=== PATIENT | female | born 1940 | race Caucasian/White ===

== ENCOUNTER → 2024-10-18 | Outpatient (CLI) | payer OTHER, MEDICAID, SELFPAY ==
[2024-10-18 09:09] LABS: Collection Type, Urine Clean Catch
[2024-10-18 09:32] LABS: Basophils # (Auto) 0.1 Thou/mm3 (0.0-0.2); Basophils % (Auto) 1 % (0-2.5); Eosinophils # (Auto) 0.2 Thou/mm3 (0.0-0.5); Eosinophils % (Auto) 3 % (0-10); Hematocrit 34.2 % (36.0-46.0); Hemoglobin 11.1 g/dL (12.0-16.0); Immature Granulocytes % (Auto) 0 % (0-0); Immature Granulocytes Auto 0.02 Thou/mm3 (0.00-0.00); Lymphocytes # (Auto) 2.2 Thou/mm3 (1.0-4.8); Lymphocytes % (Auto) 33 % (10-50); Mean Corpuscular HGB Conc 32.5 g/dl (31.0-37.0); Mean Corpuscular Hemoglobin 32.9 pg (25.0-35.0); Mean Corpuscular Volume 102 fL (80-100); Monocytes # (Auto) 0.7 Thou/mm3 (0.0-0.8); Monocytes % (Auto) 10 % (0-12); Neutrophils # (Auto) 3.7 Thou/mm3 (1.8-7.7); Neutrophils % (Auto) 54 % (37-80); Nucleated Red Blood Cell % 0 /100 WBC (0); Platelet Count 273 Thou/mm3 (140-440); RDW Standard Deviation 51.4 fL (36.4-46.3); Red Blood Count 3.37 Miln/mm3 (4.00-5.20); White Blood Count 6.8 Thou/mm3 (3.6-11.0)
[2024-10-18 09:46] LABS: Alanine Aminotransferase 16 U/L (10-49); Alkaline Phosphatase 76 U/L (46-116); Anion Gap 7 (7-16); Aspartate Amino Transferase 21 U/L (0-34); BUN/Creatinine Ratio 17 Ratio (12-20); Bilirubin,Total 0.3 mg/dL (0.3-1.2); Blood Urea Nitrogen 19 mg/dL (9-23); Calcium 9.3 mg/dL (8.3-10.6); Calcium (Corrected) 9.3 mg/dL (8.5-10.1); Carbon Dioxide 28.5 mMol/L (20.0-31.0); Chloride 105 mMol/L (98-107); Creatinine (Component) 1.1 mg/dL (0.6-1.3); Free T4 (Free Thyroxine) 0.98 ng/dL (0.89-1.76); Glucose 102 mg/dL (74-106); Osmolality,Calculated 281 (275-295); Potassium 4.9 mMol/L (3.4-5.1); Sodium 140 mMol/L (136-145); eGFR 50 See Note
[2024-10-18 10:24] LABS: Bilirubin,Urine Negative (Negative); Blood,Urine Negative (Negative); Clarity,Urine Clear (Clear/Hazy); Color,Urine Lt Yellow (Lt Yel-Yel); Glucose, Urine Negative (Negative); Ketones,Urine Negative (Negative); Leukocyte Esterase,Urine 1+ (Negative); Nitrite,Urine Negative (Negative); Protein,Urine Negative (Neg - Trace)
[2024-10-18 10:38] LABS: Bacteria,Urine Rare; RBC,Urine 3 /hpf (0-3); Squamous Epithelial Cell,Urine 23 /hpf (0-5); WBC,Urine 7 /hpf (0-5)
== END | disposition home or self-care (01) ==
PROVIDERS: PCP Family Medicine; Referring Provider Family Medicine; Visit Provider Family Medicine
DX: E03.9 Hypothyroidism, unspecified (principal); I10 Essential (primary) hypertension; E78.2 Mixed hyperlipidemia
CPT/HCPCS: 36415; 80053; 81001; 84439; 84443; 85025

== ENCOUNTER → 2024-12-15 | Outpatient (CLI) | payer OTHER, MEDICAID, SELFPAY ==
[2024-12-15 12:04] LABS: Basophils # (Auto) 0.1 Thou/mm3 (0.0-0.2); Basophils % (Auto) 1 % (0-2.5); Eosinophils # (Auto) 0.3 Thou/mm3 (0.0-0.5); Eosinophils % (Auto) 4 % (0-10); Hemoglobin 11.7 g/dL (12.0-16.0); Immature Granulocytes % (Auto) 1 % (0-0); Immature Granulocytes Auto 0.04 Thou/mm3 (0.00-0.00); Lymphocytes % (Auto) 38 % (10-50); Mean Corpuscular HGB Conc 32.5 g/dl (31.0-37.0); Mean Corpuscular Hemoglobin 31.9 pg (25.0-35.0); Mean Corpuscular Volume 98 fL (80-100); Monocytes # (Auto) 0.6 Thou/mm3 (0.0-0.8); Monocytes % (Auto) 8 % (0-12); Neutrophils # (Auto) 3.9 Thou/mm3 (1.8-7.7); Neutrophils % (Auto) 49 % (37-80); Nucleated Red Blood Cell % 0 /100 WBC (0); Platelet Count 274 Thou/mm3 (140-440); RDW Standard Deviation 48.2 fL (36.4-46.3); Red Blood Count 3.67 Miln/mm3 (4.00-5.20); White Blood Count 7.9 Thou/mm3 (3.6-11.0)
[2024-12-15 12:28] LABS: Iron 79 mcg/dL (50-170)
[2024-12-15 12:32] LABS: Cardiac Risk Estimate 3.3 RATIO (3.7-5.6); Cholesterol 185 mg/dL (132-200); Free T4 (Free Thyroxine) 1.18 ng/dL (0.89-1.76); HDL Cholesterol 56 mg/dL (40-60); LDL Cholesterol,Calculated 73 mg/dL (0-130); Triglycerides 278 mg/dL (30-150)
[2024-12-15 13:28] LABS: Vitamin B12 > 2000 pg/mL (211-911)
== END | disposition home or self-care (01) ==
LOC: COPL 11:30
PROVIDERS: PCP Family Medicine; Referring Provider Family Medicine; Visit Provider Family Medicine
DX: D51.9 Vitamin B12 deficiency anemia, unspecified (principal); E03.9 Hypothyroidism, unspecified
CPT/HCPCS: 36415; 80061; 82607; 83540; 84439; 84443; 85025

== ENCOUNTER → 2025-04-26 | Outpatient (CLI) | payer OTHER, MEDICAID, SELFPAY ==
[2025-04-26 10:46] LABS: Cardiac Risk Estimate 2.7 RATIO (3.7-5.6); Cholesterol 158 mg/dL (132-200); HDL Cholesterol 59 mg/dL (40-60); LDL Cholesterol,Calculated 53 mg/dL (0-130); Triglycerides 229 mg/dL (30-150)
== END | disposition home or self-care (01) ==
LOC: COPL 09:20
PROVIDERS: PCP Family Medicine; Referring Provider Family Medicine; Visit Provider Family Medicine
DX: E78.2 Mixed hyperlipidemia (principal)
CPT/HCPCS: 36415; 80061

== ENCOUNTER 2025-05-03 11:56 | Emergency (ER) | payer OTHER, MEDICAID, SELFPAY ==
[2025-05-03 12:09] VITALS: BP 192/85; PULSE 56; RESP 16; TEMP 36.7; O2SAT 100
--- NOTE | 2025-05-03 12:12 | XR_ITS ---
Examination: Hand, right 3 views Technique: Hand AP, oblique, lateral 3 views Date and time of exam: May 03, 2025 1220 hours INDICATIONS: Patient fell 2 days ago with injury to the hand and wrist, hand pain wrist pain. FINDINGS: Severe osteopenia Advanced osteoarthritis first carpometacarpal joint and distal interphalangeal joints as well as interphalangeal joint first digit Acute fracture distal radial metaphysis without significant displacement IMPRESSION: Acute fracture distal radial metaphysis without significant displacement
--- NOTE | 2025-05-03 12:12 | XR_ITS ---
Examination: Wrist, right 3 views Technique: Wrist AP, oblique, lateral 3 views Date and time of exam: May 03, 2025 1220 hours INDICATIONS: Patient fell 2 days ago with injury to the wrist, wrist pain. FINDINGS: Severe osteopenia Acute fracture distal radial metaphysis without significant displacement IMPRESSION: Acute fracture distal radial metaphysis without significant displacement
--- NOTE | 2025-05-03 12:15 | PD.EDUPEX ---
Upper Extremity Injury RME/HPI General Chief Complaint: Extremity Injury, Upper Stated Complaint: FELL INJURING R) WRIST Time Seen by Provider: 05/03/25 12:08 Source: patient Arrival date/time: 05/03/25 11:56 84-year-old female with a history of hypothyroidism, hypertension, presents to the emergency room with a chief complaint of tenderness and swelling to her right wrist after a ground-level fall that occurred yesterday morning. Patient denies any head trauma. Mode of arrival: ambulatory Limitations: no limitations Related Data Home Medications ?Medication ?Instructions ?Recorded ?Confirmed brimonidine 0.15 % eye drops 0.15 drp Both eyes TID #10 mL 05/16/17 06/03/24 (Alphagan P) naproxen sodium 220 mg tablet 220 mg PO BIDWM #0 tabs 05/16/17 06/03/24 (Aleve) travoprost 0.004 % eye drops 1 drp Both eyes HS #5 mL 05/16/17 06/03/24 (Travatan Z) timolol maleate 0.5 % eye drops 1 drp OP BID ##10 07/11/17 06/03/24 aspirin 81 mg tablet,delayed 81 mg PO QDAY 06/03/24 06/03/24 release celecoxib 200 mg capsule 200 mg PO QDAY 06/03/24 06/03/24 coenzyme Q10 100 mg capsule 100 mg PO QDAY 06/03/24 06/03/24 (CoQ-10) levothyroxine 75 mcg tablet 75 mcg PO QDAY 06/03/24 06/03/24 losartan 100 mg tablet 100 mg PO QDAY 06/03/24 06/03/24 multivitamin-ferrous 1 tab PO QAM 06/03/24 06/03/24 fumarate-folic acid 18 mg-400 mcg tablet (Centrum Women) nitroglycerin 0.4 mg sublingual 0.4 mg buccal [id number] PRN Chest 06/03/24 06/03/24 tablet Pain pantoprazole 40 mg tablet,delayed 40 mg PO QDAY 06/03/24 06/03/24 release (Protonix) ranolazine 500 mg tablet,extended 500 mg PO BID 06/03/24 06/03/24 release,12 hr rosuvastatin 10 mg tablet 10 mg PO QDAY 06/03/24 06/03/24 vitamin B12 2,500 mcg-folic acid 1 tab PO DAILY 06/03/24 06/03/24 400 mcg disintegrating tablet Allergies Allergy/AdvReac Type Severity Reaction Status Date / Time adhesive tape Allergy Mild TEARS SKIN Verified 05/03/25 12:01 ibuprofen Allergy Mild DIFFICULTY Verified 05/03/25 12:01 BREATHING, TURNS RED peanut oil Allergy Mild ITCHY FROM Verified 05/03/25 12:01 HEAD TO TOE Penicillins Allergy Mild Rash Verified 05/03/25 12:01 povidone-iodine Allergy Mild BLISTERS Verified 05/03/25 12:01 peanut Allergy Verified 05/03/25 12:01 Review of Systems Review of Systems Systems Reviewed: All systems reviewed, normal except as documented Constitutional Constitutional: Reports system reviewed and no additional complaints, except as documented, Denies fatigue, Denies fever(s), Denies headache(s) and Denies weakness Eyes Eyes: Reports system reviewed and no additional complaints, except as documented, Denies blurry vision and Denies change in vision ENT Ears, Nose, Mouth, and Throat: Reports system reviewed and no additional complaints, except as documented, Denies otalgia, Denies headache(s), Denies nasal congestion, Denies throat swelling and Denies vertigo Cardiovascular Cardiovascular: Reports system reviewed and no additional complaints, except as documented, Denies chest pain, Denies dyspnea and Denies dyspnea on exertion Respiratory Respiratory: Reports system reviewed and no additional complaints, except as documented, Denies chest congestion, Denies cough, Denies dyspnea, Denies dyspnea on exertion and Denies wheezing Gastrointestinal Gastrointestinal: Reports system reviewed and no additional complaints, except as documented, Denies abdominal pain, Denies cramping, Denies nausea and Denies vomiting Genitourinary Genitourinary: Reports system reviewed and no additional complaints, except as documented Musculoskeletal Musculoskeletal: Reports system reviewed and no additional complaints, except as documented, Reports arthralgias, Denies back pain, Reports joint swelling and Reports limited range of motion Integumentary/Breasts Skin/Breast: Reports system reviewed and no additional complaints, except as documented and Denies wounds Neurologic Neurologic: Reports system reviewed and no additional complaints, except as documented, Denies confusion, Denies headache(s), Denies lack of coordination, Denies vertigo and Denies weakness Psychiatric Psychiatric: Reports system reviewed and no additional complaints, except as documented, Denies anxiety, Denies confusion, Denies depression, Denies paranoia, Denies suicidal ideation and Denies tactile hallucinations Endocrine Endocrine: Reports system reviewed and no additional complaints, except as documented and Denies fatigue Hematologic/Lymphatic Hematologic/Lymphatic: Reports system reviewed and no additional complaints, except as documented and Denies lymphadenopathy Allergic/Immunologic Allergic/Immunologic: Reports system reviewed and no additional complaints, except as documented, Denies throat swelling, Denies urticaria and Denies wheezing Past Medical History Past Medical History NEUROLOGIC: Positive Neurological Disorders and Head Trauma (concussion); Negative Seizures CARDIAC: Positive Cardiac Disorders, Hypercholesterolemia, Valvular Heart Disease (mitral regurgitation) and Hypertension; Negative Congestive Heart Failure RESPIRATORY: Negative Chronic Obstructive Pulmonary Disease (COPD) or Asthma GASTROINTESTINAL: Positive Gastrointestinal Disorders, Gall Bladder Disease (removed 20 years ago), Gastroesophageal Reflux Disease and Obesity GENITOURINARY: Positive Genitourinary Disorders and Kidney Stones; Negative Renal Disease REPRODUCTIVE: Positive Previous Pregnancies MUSCULOSKELETAL: Positive Musculoskeletal Disorders, Arthritis, Scoliosis and Carpal Tunnel Syndrome (bilateral); Negative Osteoporosis ENT: Positive Cataracts (Bilateral), Glaucoma, Blind (left eye partial blindness), Macular Degeneration (cr), Deafness (partial hearing loss, has hearing aids) and Head Trauma (concussion) ENDOCRINE: Positive Endocrine Disorders and Hypothyroidism; Negative Diabetes Mellitus Type 1 or Diabetes Mellitus Type 2 HEMATOLOGIC: Negative Blood Disorders OTHER HISTORY: Positive Hospitalization (surgery) and Chicken Pox; Negative Autoimmune Disease, Shingles, Blood Transfusions, Blood Transfusion Reaction, Anesthesia Reactions or Cancer Family History FAMILY HISTORY: Positive Family Cardiac Disorders and Family Gastrointestinal Problems (obesity); Negative Family Psychiatric Problems, Family Respiratory Disorders, Family Cancer, Family Surgery or Family Anesthesia Reaction Surgical History SURGICAL: Positive Cardiac Surgery, Cardiac Catheterization, Angiogram (coronary), Tonsillectomy, Adenoidectomy, Abdominal Surgery, Gastric Bypass Surgery (2009) and Hysterectomy; Negative Coronary Stent, Lumpectomy or Tubal Ligation Social History SMOKING STATUS: Former smoker ED Exam General Limitations: Present no limitations General appearance: Present alert and in no apparent distress Head Head exam: Present atraumatic Eye Eye exam: Present normal appearance, PERRL and EOMI ENT ENT exam: Present normal exam, normal oropharynx and mucous membranes moist Neck Neck exam: Present normal inspection, full ROM and trachea midline Chest Chest inspection: Present normal inspection and symmetric chest wall rise Respiratory Respiratory exam: Present normal lung sounds bilaterally Cardiovascular Cardiovascular exam: Present regular rate, normal rhythm and normal heart sounds Abdominal Exam Abdominal exam: Present soft and normal bowel sounds Extremities Exam Extremities exam: Present normal inspection and full ROM Expanded Upper Extremity Exam Shoulder exam: Present normal inspection Arm exam: Present normal inspection Elbow exam: Present normal inspection Forearm/Wrist exam: Present tenderness and swelling; Absent full ROM Hand exam: Present tenderness and swelling; Absent full ROM Back Exam Back exam: Present normal inspection and full ROM Neurological Exam Neurological exam: Present alert, oriented X3 and CN II-XII intact Psychiatric Psychiatric exam: Present normal affect and normal mood Skin Skin exam: Present warm, dry, intact and normal color Course Quality Measures none Orders Category Date Time Status Splint / Immobilizer STAT Care 05/03/25 13:14 Active XR hand comp RT min 3V Stat Exams 05/03/25 12:12 Completed XR wrist comp RT min 3V Stat Exams 05/03/25 12:12 Completed Vital Signs Vital signs: Vital Signs Temperature 98.0 F 05/03/25 12:09 Pulse Rate 56 L 05/03/25 12:09 Respiratory Rate 16 05/03/25 12:09 Blood Pressure 192/85 H 05/03/25 12:09 Pulse Oximetry (%) 100 05/03/25 12:09 Oxygen Delivery Method Room Air 05/03/25 12:09 Extremity Injury MDM Narrative MDM Narrative:: 84-year-old female with a history of hypothyroidism, hypertension, presents to the emergency room with a chief complaint of tenderness and swelling to her right wrist after a ground-level fall that occurred yesterday morning. Patient denies any head trauma. Patient is hemodynamically stable and in no apparent distress Physical examination shows tenderness and pain to the patient's right wrist. The patient has a very limited range of motion. X-ray of the wrist was completed and shows an acute fracture of the distal radial metaphysis without significant displacement A splint was placed on the injury. The patient was discharged and educated to follow-up with a primary care provider as a referral to an transitional living specialist needed for further management patient was discharged and educated to follow-up with primary care provider in the next 24 to 48 hours and return to the emergency room for any evidence of worsening signs or symptoms Patient data External records reviewed:: [facility] previous records Clinical information provided by:: patient Social determinants that could affect healthcare access:: none Patient has the following chronic illnesses:: No chronic illness How is presenting disease/condition affected by chronic disease/condition?: no chronic disease Evaluation data The following diagnostics were reviewed and interpreted by me:: lab results and radiology exam(s) Lab and/or radiology exams considered but not ordered:: Labs and radiology exams considered and ordered Interpretation Summary: X-ray right wrist-FINDINGS: Severe osteopenia Acute fracture distal radial metaphysis without significant displacement IMPRESSION: Acute fracture distal radial metaphysis without significant displacement Medications / Prescriptions Medications or Prescriptions considered but not ordered:: No medication given Medication administrations:: No medication given Consultations Consultation(s) initiated? (list below): No Diagnosis Upper Extremity Injury Differential Diagnosis: sprain and strain of wrist, fracture of wrist and other (Radial fracture) Most likely diagnosis given after review of the tests above:: Radial fracture Admission Indicated Admission indicated?: not indicated Admission Request Was there a request for admission?: No Disposition Plan Disposition Plan: Discharge Discharge Attestation Discharge Attestation: The patient and all family members were given an opportunity to ask questions and understood the discharge instructions. Discharge instructions specifically effects, indications for sooner follow up or return to the emergency department, and the expected course of current diagnosis. Patient condition: Stable Discharge Plan Plan Patient Disposition: HOME (Self Care) Discharge Disposition comment: Stable Prescriptions/Referrals Prescriptions/Med Rec: No Action travoprost [Travatan Z] 5 ML drops 1 drp Both eyes HS Qty: 5 naproxen sodium [Aleve] 220 MG tablet 220 mg PO BIDWM Qty: 0 brimonidine [Alphagan P] 10 ML drops 0.15 drp Both eyes TID Qty: 10 timolol maleate 5 ML drops 1 drp OP BID Qty: 10 celecoxib 200 mg Capsule 200 mg PO QDAY aspirin 81 mg Tablet,Delayed Release (Dr/Ec) 81 mg PO QDAY levothyroxine 75 mcg Tablet 75 mcg PO QDAY pantoprazole [Protonix] 40 mg Tablet,Delayed Release (Dr/Ec) 40 mg PO QDAY nitroglycerin 0.4 mg Tablet, Sublingual 0.4 mg BUCCAL [id number] PRN (Reason: Chest Pain) losartan 100 mg Tablet 100 mg PO QDAY coenzyme Q10 [CoQ-10] 100 mg Capsule 100 mg PO QDAY rosuvastatin 10 mg Tablet 10 mg PO QDAY ranolazine 500 mg Tablet Extended Release 12 Hr 500 mg PO BID Centrum Women 18-400 mg-mcg Tablet 1 tab PO QAM vitamin [id number] acid 2,500-400 mcg Tablet,Disintegrating 1 tab PO DAILY Referrals: Socorro Lucio MD [Primary Care Provider, Family Practice] - In 1 week Problem List Clinical Impression: Distal radius fracture Patient/Caregiver Discharge Instructions Education Materials: Wrist Fracture, ED Forearm Fx Wo Redu Additional Instructions: Please follow-up with your primary care provider in the next 24 to 48 hours You will need a referral to an transitional living specialist for further management of this fracture For any evidence of worsening signs or symptoms return to the emergency room immediately Print Language: Uzbek Stand Alone Forms: Marcella Award Info., Work/School Release, Patient Portal Info Letter PA/DRY CURE WORKER Supervising Physician PA/DRY CURE WORKER Supervising Physician: Dr. Willis
[2025-05-03 12:16] VITALS: BMI 32.9
== END 2025-05-03 15:01 | disposition home or self-care (01) ==
PROVIDERS: Emergency Provider Nurse Practitioner Family; PCP Family Medicine
DX: S52.501A Unspecified fracture of the lower end of right radius, initial encounter for closed fracture (principal); W18.30XA Fall on same level, unspecified, initial encounter
CPT/HCPCS: 29126; 73110; 73130; 99284

== ENCOUNTER → 2025-06-09 | Outpatient (CLI) | payer OTHER, MEDICAID, SELFPAY ==
--- NOTE | 2025-06-09 15:13 | XR_ITS ---
Examination: Wrist, right 3 views Technique: Wrist AP, oblique, lateral 3 views Date and time of exam: June 09, 2025, 5019 hours INDICATIONS: Wrist fracture May 02, 2025 FINDINGS: Partial healing fracture distal radial metaphysis with stable and satisfactory alignment compared with 05/03/2025 IMPRESSION: Early healing fracture distal radial metaphysis with stable and satisfactory alignment Recommend continued follow-up to document more complete healing
== END | disposition home or self-care (01) ==
LOC: CDIM 15:04
PROVIDERS: PCP Family Medicine; Referring Provider Family Medicine; Visit Provider Family Medicine
DX: S52.509A Unspecified fracture of the lower end of unspecified radius, initial encounter for closed fracture (principal); X58.XXXA Exposure to other specified factors, initial encounter
CPT/HCPCS: 73110

== ENCOUNTER → 2025-06-23 | Outpatient (CLI) | payer OTHER, MEDICAID, SELFPAY ==
--- NOTE | 2025-06-23 12:38 | XR_ITS ---
Examination: Wrist, right 3 views Technique: Wrist AP, oblique, lateral 3 views Date and time of exam: June 23, 2025, 1252 hours, comparison June 09, 2025 05/03/2025 INDICATIONS: Patient fell 2 months ago with acute wrist fracture FINDINGS: Partial healing fracture distal radial metaphysis, the fracture line is still evident No interval displacement IMPRESSION: Suggest continued follow-up to document more complete healing fracture distal radial metaphysis
[2025-06-23 13:29] LABS: Basophils # (Auto) 0.1 Thou/mm3 (0.0-0.2); Basophils % (Auto) 1 % (0-2.5); Eosinophils # (Auto) 0.2 Thou/mm3 (0.0-0.5); Eosinophils % (Auto) 3 % (0-10); Hematocrit 32.9 % (36.0-46.0); Hemoglobin 10.3 g/dL (12.0-16.0); Immature Granulocytes Auto 0.01 Thou/mm3 (0.00-0.00); Lymphocytes # (Auto) 2.6 Thou/mm3 (1.0-4.8); Lymphocytes % (Auto) 38 % (10-50); Mean Corpuscular HGB Conc 31.3 g/dl (31.0-37.0); Mean Corpuscular Hemoglobin 28.6 pg (25.0-35.0); Mean Corpuscular Volume 91 fL (80-100); Monocytes # (Auto) 0.6 Thou/mm3 (0.0-0.8); Monocytes % (Auto) 8 % (0-12); Neutrophils # (Auto) 3.4 Thou/mm3 (1.8-7.7); Neutrophils % (Auto) 50 % (37-80); Nucleated Red Blood Cell # 0.00 Thou/mm3 (0.00-0.00); Nucleated Red Blood Cell % 0 /100 WBC (0); Platelet Count 327 Thou/mm3 (140-440); RDW Standard Deviation 60.3 fL (36.4-46.3); Red Blood Count 3.60 Miln/mm3 (4.00-5.20); White Blood Count 6.9 Thou/mm3 (3.6-11.0)
[2025-06-23 13:46] LABS: Alanine Aminotransferase 17 U/L (10-49); Albumin, Serum 4.6 gm/dL (3.4-4.8); Albumin/Globulin Ratio 2.4 (1.2-2.2); Alkaline Phosphatase 75 U/L (46-116); Anion Gap 9 (7-16); Aspartate Amino Transferase 27 U/L (0-34); BUN/Creatinine Ratio 17 Ratio (12-20); Bilirubin,Total 0.4 mg/dL (0.3-1.2); Blood Urea Nitrogen 20 mg/dL (9-23); Calcium 9.4 mg/dL (8.3-10.6); Calcium (Corrected) 9.4 mg/dL (8.5-10.1); Carbon Dioxide 27.4 mMol/L (20.0-31.0); Chloride 108 mMol/L (98-107); Creatinine (Component) 1.2 mg/dL (0.6-1.3); Globulin 1.9 gm/dL (2.3-3.5); Glucose 98 mg/dL (74-106); Osmolality,Calculated 289 (275-295); Potassium 5.0 mMol/L (3.4-5.1); Sodium 144 mMol/L (136-145); Total Protein 6.5 gm/dL (5.7-8.2); eGFR 45 See Note
== END | disposition home or self-care (01) ==
PROVIDERS: PCP Family Medicine; Referring Provider Family Medicine; Visit Provider Family Medicine
DX: S52.509D Unspecified fracture of the lower end of unspecified radius, subsequent encounter for closed fracture with routine healing (principal); W19.XXXD Unspecified fall, subsequent encounter
CPT/HCPCS: 36415; 73110; 80053; 85025

== ENCOUNTER → 2025-08-05 | Outpatient (CLI) | payer OTHER, MEDICAID, SELFPAY ==
--- NOTE | 2025-08-05 14:42 | XR_ITS ---
Examination: Wrist, right 3 views Technique: Wrist AP, oblique, lateral 3 views Date and time of exam: August 05, 2025, 1504 hours, comparison June 23, 2025. INDICATIONS: Acute fracture distal radial metaphysis history FINDINGS: Significant healing fracture distal radial metaphysis compared with June 23, 2025 Severe osteopenia IMPRESSION: Significant healing fracture distal radial metaphysis with stable and satisfactory alignment
[2025-08-05 16:26] LABS: Basophils # (Auto) 0.1 Thou/mm3 (0.0-0.2); Basophils % (Auto) 1 % (0-2.5); Eosinophils # (Auto) 0.2 Thou/mm3 (0.0-0.5); Eosinophils % (Auto) 3 % (0-10); Hematocrit 35.4 % (36.0-46.0); Hemoglobin 11.1 g/dL (12.0-16.0); Immature Granulocytes Auto 0.02 Thou/mm3 (0.00-0.00); Lymphocytes # (Auto) 2.6 Thou/mm3 (1.0-4.8); Lymphocytes % (Auto) 37 % (10-50); Mean Corpuscular HGB Conc 31.4 g/dl (31.0-37.0); Mean Corpuscular Hemoglobin 30.5 pg (25.0-35.0); Mean Corpuscular Volume 97 fL (80-100); Monocytes # (Auto) 0.6 Thou/mm3 (0.0-0.8); Monocytes % (Auto) 8 % (0-12); Neutrophils # (Auto) 3.6 Thou/mm3 (1.8-7.7); Neutrophils % (Auto) 51 % (37-80); Nucleated Red Blood Cell # 0.00 Thou/mm3 (0.00-0.00); Nucleated Red Blood Cell % 0 /100 WBC (0); Platelet Count 325 Thou/mm3 (140-440); RDW Standard Deviation 63.0 fL (36.4-46.3); Red Blood Count 3.64 Miln/mm3 (4.00-5.20); White Blood Count 7.0 Thou/mm3 (3.6-11.0)
[2025-08-05 21:57] LABS: Ferritin 24 ng/mL (7.3-270.7); Iron 135 mcg/dL (50-170); Percent Iron Saturation 41 % (20-55); Total Iron Binding Capacity 329 mcg/dL (250-425); Unsaturated Iron Binding 194 (225-295)
[2025-08-05 22:48] LABS: Vitamin B12 > 2000 pg/mL (211-911)
== END | disposition home or self-care (01) ==
LOC: CDIM 13:38 → COPL 13:47
PROVIDERS: PCP Family Medicine; Referring Provider Family Medicine; Visit Provider Family Medicine
DX: S52.501D Unspecified fracture of the lower end of right radius, subsequent encounter for closed fracture with routine healing (principal); X58.XXXD Exposure to other specified factors, subsequent encounter; D64.9 Anemia, unspecified
CPT/HCPCS: 36415; 73110; 82607; 82728; 83540; 83550; 85025